=== PATIENT | female | born 1965 | race Caucasian/White ===

== ENCOUNTER 2022-06-07 10:51 | Emergency (ER) | payer BC ==
[~2022-06-07] VITALS: Ht 175.3 cm; Wt 92.1 kg
[2022-06-07 10:55] VITALS: BP 132/75
--- NOTE | 2022-06-07 12:05 | NUR ---
57/F PRESENTS TO ED WITH C/O RASH ON NECK SINCE FRIDAY, STATES SHE WAS SEEN AT URGENT CARE AND GIVEN ABX BUT REPORTS SHE FEELS ITS WORSENING, DENIES NEW PRODUCTS/FOODS, DENIES SOB.
[2022-06-07] MEDS ORDERED: HYDR28CR38 TP (15:36)
[2022-06-07] MEDS ORDERED: CEPH-588 PO (15:36)
[2022-06-07] MEDS ORDERED: HYDR25CA1 PO (15:55)
[2022-06-07 16:08] VITALS: BP 126/83
--- NOTE | 2022-06-07 16:10 | NUR ---
Patient discharged with v/s stable. Written and verbal after care instructions ABOUT CELLULITIS given and explained. Patient alert, oriented and verbalized understanding of instructions. Ambulatory with steady gait. All questions addressed prior to discharge. ID band removed. Patient advised to follow up with PMD. Rx of KEFLEX AND CORTIZONE CREME given. Patient educated on indication of medication including possible reaction and side effects. Opportunity to ask questions provided and answered.
== END 2022-06-07 16:10 | disposition home or self-care (01) ==
LOC: MED 10:51
DX: L03.221 Cellulitis of neck (principal); Z88.0 Allergy status to penicillin
CPT/HCPCS: 99284

== ENCOUNTER 2022-09-04 19:06 | Inpatient (IN) | payer BC ==
[~2022-09-04] VITALS: Ht 175.3 cm; Wt 90.7 kg
[~2022-09-04 19:06] MED LIST: CEPH-588 PO; HYDR25CA1 PO; HYDR28CR38 TP
[2022-09-04 19:11] VITALS: BP 135/79
[2022-09-04] MEDS ORDERED: NACL 0.9% 1,000 ML IV ONE (20:05)
[2022-09-04 20:16] LABS: BASOPHILS # (AUTO) 0.1 K/uL (0.00-0.22); BASOPHILS % (AUTO) 0.8 % (0.0-2.0); EOSINOPHILS # (AUTO) 0.1 K/uL (0-0.4); EOSINOPHILS % (AUTO) 1.5 % (0.0-4.0); HEMATOCRIT 39.8 % (36-48); HEMOGLOBIN 13.2 g/dL (12.0-16.0); LYMPHOCYTES # (AUTO) 1.8 K/uL (2.5-16.5); LYMPHOCYTES % (AUTO) 27.7 % (20.5-51.1); MEAN CORPUSCULAR HEMOGLOBIN 29 pg (27-31); MEAN CORPUSCULAR HGB CONC 33 g/dL (33-37); MONOCYTES # (AUTO) 0.5 K/uL (0.8-1.0); MONOCYTES % (AUTO) 6.8 % (1.7-9.3); NEUTROPHILS # (AUTO) 4.2 K/uL (1.8-7.7); NEUTROPHILS % (AUTO) 63.2 % (42.2-75.2); PLATELET COUNT (AUTO) 272 K/uL (140-450); RED BLOOD CELL COUNT(AUTO) 4.63 MIL/uL (4.20-5.40); RED CELL DISTRIBUTION WIDTH 14.2 % (11.6-13.7); WHITE BLOOD COUNT (AUTO) 6.6 K/uL (4.8-10.8)
[2022-09-04 20:49] LABS: ALBUMIN 3.7 g/dL (3.4-5.0); ANION GAP 8.2 (8-16); ASPARTATE AMINOTRANSFERASE 16 U/L (15-37); CARBON DIOXIDE 33.6 mmol/L (21-32); CHLORIDE 104 mmol/L (98-107); CREATININE 0.8 mg/dL (0.6-1.3); GFR ARICAN-AMERICAN 94 mL/min (>90); GLUCOSE 90 mg/dL (74-106); POTASSIUM 3.8 mmol/L (3.5-5.1); SODIUM SERUM 142 mmol/L (136-145); TOTAL BILIRUBIN 0.4 mg/dL (0.0-1.0); UREA NITROGEN, BLOOD 14 mg/dL (7-18)
[2022-09-04 22:10] LABS: APPEARANCE,URINE CLEAR (CLEAR); BILIRUBIN,URINE NEGATIVE (NEGATIVE); BLOOD, URINE NEGATIVE (NEGATIVE); COLOR,URINE YELLOW (YELLOW); LEUKOCYTE ESTERASE ,URINE NEGATIVE (NEGATIVE); NITRITE, URINE NEGATIVE (NEGATIVE); PH,URINE 6.5 (5.0-9.0); UGLUCOSE NEGATIVE (NEGATIVE)
[2022-09-05] MEDS ORDERED: MORPHINE SULFATE 2 MG/ML SYR IVP PRN (00:45)
[2022-09-05] MEDS ORDERED: HYDROcodone/APAP 5/325 MG 1 TAB TAB PO PRN (00:45)
[2022-09-05] MEDS ORDERED: SODIUM PHOS / POTASSIUM PHOS 1 PKT PDR PO PRN (00:45)
[2022-09-05] MEDS ORDERED: MAGNESIUM OXIDE 400 MG TAB PO PRN (00:45)
[2022-09-05] MEDS ORDERED: POTASSIUM CHLORIDE 10 MEQ TABER PO PRN (00:45)
[2022-09-05] MEDS ORDERED: ONDANSETRON 4 MG/2 ML VIAL IM/IVP PRN (00:45)
[2022-09-05] MEDS ORDERED: DOCUSATE SODIUM 100 MG GELCAP PO PRN (00:45)
[2022-09-05] MEDS ORDERED: ACETAMINOPHEN 325 MG TAB PO PRN (00:45)
[2022-09-05] MEDS ORDERED: MECLIZINE 25 MG TAB PO PRN (00:50)
[2022-09-05] MEDS ORDERED: MELATONIN 3 MG TAB PO PRN (00:55)
[2022-09-05] MEDS: NACL 0.9% 1,000 ML IV SCH (01:23)
[2022-09-05 04:00] VITALS: BP 123/72
[2022-09-05 06:50] LABS: BARBITURATE, URINE NEGATIVE ng/ml (NEG <=200); BENZODIAZEPINE, URINE NEGATIVE ng/mL (NEG <=200); CANNABINOID, URINE NEGATIVE ng/mL (NEG <=50); COCAINE, URINE NEGATIVE ng/mL (NEG <=300); OPIATE, URINE NEGATIVE ng/mL (NEG <=2000); PHENCYCLIDINE SCREEN,URINE NEGATIVE ng/mL (NEG <=25)
[2022-09-05 07:50] LABS: ANION GAP 10.6 (8-16); CARBON DIOXIDE 27.4 mmol/L (21-32); CREATININE 0.7 mg/dL (0.6-1.3)
[2022-09-05 07:58] LABS: CHOL/HDL RATIO 3.8 (1-4.5); MAGNESIUM 2.1 mg/dL (1.8-2.4)
[2022-09-05 08:00] VITALS: BP 134/80
[2022-09-05 08:17] LABS: BASOPHILS % (AUTO) 0.6 % (0.0-2.0); EOSINOPHILS # (AUTO) 0.1 K/uL (0-0.4); EOSINOPHILS % (AUTO) 1.4 % (0.0-4.0); HEMATOCRIT 41.2 % (36-48); HEMOGLOBIN 13.2 g/dL (12.0-16.0); LYMPHOCYTES % (AUTO) 37.7 % (20.5-51.1); MEAN CORPUSCULAR HEMOGLOBIN 28 pg (27-31); MEAN CORPUSCULAR HGB CONC 32 g/dL (33-37); MEAN CORPUSCULAR VOLUME 87.3 fL (80-94); MONOCYTES # (AUTO) 0.3 K/uL (0.8-1.0); MONOCYTES % (AUTO) 5.9 % (1.7-9.3); NEUTROPHILS % (AUTO) 54.4 % (42.2-75.2); PLATELET COUNT (AUTO) 198 K/uL (140-450); RED BLOOD CELL COUNT(AUTO) 4.72 MIL/uL (4.20-5.40); RED CELL DISTRIBUTION WIDTH 14.5 % (11.6-13.7); WHITE BLOOD COUNT (AUTO) 5.4 K/uL (4.8-10.8)
[2022-09-05] MEDS: PANTOPRAZOLE 40 MG TABEC PO SCH (08:18)
[2022-09-05 12:00] VITALS: BP 130/73
[2022-09-05 16:00] VITALS: BP 126/71
[2022-09-05 20:00] VITALS: BP 122/63
[2022-09-05 22:00] VITALS: BP 110/60
[2022-09-06] MEDS: NACL 0.9% 1,000 ML IV SCH (00:45)
[2022-09-06 04:00] VITALS: BP 100/59
[2022-09-06] MEDS ORDERED: LEVOTHYROXINE 0.075 MG TAB PO SCH (06:30)
[2022-09-06 07:30] LABS: BASOPHILS % (AUTO) 0.6 % (0.0-2.0); EOSINOPHILS # (AUTO) 0.1 K/uL (0-0.4); EOSINOPHILS % (AUTO) 1.7 % (0.0-4.0); HEMATOCRIT 38.2 % (36-48); HEMOGLOBIN 12.8 g/dL (12.0-16.0); LYMPHOCYTES % (AUTO) 38.5 % (20.5-51.1); MEAN CORPUSCULAR HEMOGLOBIN 29 pg (27-31); MEAN CORPUSCULAR HGB CONC 34 g/dL (33-37); MEAN CORPUSCULAR VOLUME 85.9 fL (80-94); MONOCYTES # (AUTO) 0.4 K/uL (0.8-1.0); NEUTROPHILS # (AUTO) 2.7 K/uL (1.8-7.7); NEUTROPHILS % (AUTO) 52.2 % (42.2-75.2); PLATELET COUNT (AUTO) 215 K/uL (140-450); RED BLOOD CELL COUNT(AUTO) 4.44 MIL/uL (4.20-5.40); WHITE BLOOD COUNT (AUTO) 5.2 K/uL (4.8-10.8)
[2022-09-06 07:49] LABS: ANION GAP 9.8 (8-16); CARBON DIOXIDE 28.8 mmol/L (21-32); CREATININE 0.7 mg/dL (0.6-1.3); POTASSIUM 3.6 mmol/L (3.5-5.1)
[2022-09-06 08:00] VITALS: BP 118/67
[2022-09-06] MEDS: PANTOPRAZOLE 40 MG TABEC PO SCH (09:01)
[2022-09-06 12:00] VITALS: BP 120/64
[2022-09-06] MEDS ORDERED: MELA3TAB21 PO (13:37)
[2022-09-06] MEDS ORDERED: SYN.075 PO (13:37)
[2022-09-06] MEDS ORDERED: MECL-231 PO (13:37)
[2022-09-06 13:53] VITALS: BP 120/64
== END 2022-09-06 15:30 | disposition home or self-care (01) | DRG 312 ==
LOC: MED 19:06 → MTU 22:44
PROVIDERS: ADMIT Hospitalist; ATTEND Hospitalist
DX: R55 Syncope and collapse (principal); E87.8 Other disorders of electrolyte and fluid balance, not elsewhere classified; E78.00 Pure hypercholesterolemia, unspecified; E03.9 Hypothyroidism, unspecified; Z20.822 Contact with and (suspected) exposure to COVID-19; L40.9 Psoriasis, unspecified; Z88.0 Allergy status to penicillin
CPT/HCPCS: 36415; 70450; 80048; 80053; 80305; 81003; 82140; 83036; 83735; 84100; 84443; 84484; 85025; 87081; 90471; 90715; 93005; 93880; 96360; 97116; 99285; J7030; Q0092